=== PATIENT | male | born 1985 | race Caucasian/White ===

== ENCOUNTER 2018-04-10 21:07 | Emergency (ER) | payer OTHER ==
[~2018-04-10] VITALS: Ht 185.4 cm; Wt 71.4 kg
[2018-04-10 21:25] LABS: HEMOGLOBIN 11.7 G/DL (12.5-16.6); MCHC 34.4 G/DL (30.0-36.0); MCV 90.2 FL (86-99); PLATELET COUNT 281 K/uL (156-360); RBC DIS.WIDTH-CV 13.3 % (11.8-14.6); RBC DIS.WIDTH-SD 43.8 % (39-53); RED BLOOD COUNT 3.77 M/uL (4.00-5.50); WHITE BLOOD COUNT 9.1 K/uL (4.1-10.2)
[2018-04-10 21:33] LABS: CHLORIDE 111 mEq/L (99-109); POTASSIUM 3.6 mEq/L (3.7-5.4); SODIUM 143 mEq/L (136-147)
[2018-04-10 21:47] LABS: TROP-I INTERPRETATION NEGATIVE; TROPONIN-I < 0.01 ng/mL (0.0-0.30)
[2018-04-10 22:02] LABS: GLUCOSE 73 mg/dL (70-99)
[2018-04-10 22:05] LABS: CREATININE 0.9 mg/dL (0.6-1.3); GFR ESTIMATE (CALCULATED) > 59 mL/min/ (58.99-99999)
[2018-04-10 22:06] LABS: UREA NITROGEN (BUN) 11 mg/dL (9-23)
[2018-04-10 23:58] VITALS: BP 123/77
== END 2018-04-10 23:58 ==
LOC: EME → EDBD 21:07 → EME 21:07
DX: R55 Syncope and collapse (principal); R06.4 Hyperventilation; K21.9 Gastro-esophageal reflux disease without esophagitis; Z88.6 Allergy status to analgesic agent
CPT/HCPCS: 71046; 80048; 84484; 85027; 93005; 99281; 99285